=== PATIENT | male | born 1985 | race Caucasian/White ===

== ENCOUNTER 2019-07-03 15:45 | Outpatient (CLI) | payer OTHER, SELFPAY ==
[2019-07-03 16:30] LABS: Post Vasectomy Sperm Presence None Seen (None Seen)
== END 2019-07-03 15:46 | disposition home or self-care (01) ==
LOC: CHSLAB 15:48
PROVIDERS: PCP Nurse Practitioner Family; Visit Provider Family Medicine
DX: Z98.52 Vasectomy status (principal)
CPT/HCPCS: 88160

== ENCOUNTER 2019-09-19 12:44 | Outpatient (CLI) | payer OTHER, SELFPAY | END 2019-09-19 12:45 | disposition home or self-care (01) | LOC: CHSLAB 12:47 | PROVIDERS: PCP Nurse Practitioner Family; Visit Provider Family Medicine | DX: Z98.52 Vasectomy status (principal) | CPT/HCPCS: 89321 ==

== ENCOUNTER 2019-11-17 11:09 | Emergency (ER) | payer OTHER, SELFPAY ==
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
[2019-11-17 11:20] VITALS: BP 140/74; PULSE 85; RESP 18; TEMP 36.7; O2SAT 99
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
== END 2019-11-17 11:50 | disposition home or self-care (01) ==
PROVIDERS: Emergency Provider Nurse Practitioner Family; PCP Nurse Practitioner Family
DX: M94.0 Chondrocostal junction syndrome [Tietze] (principal); F41.9 Anxiety disorder, unspecified; F32.9 Major depressive disorder, single episode, unspecified
CPT/HCPCS: 71101; 99213; G0463

== ENCOUNTER → 2020-05-29 09:38 | Outpatient (CLI) | payer OTHER, SELFPAY ==
--- NOTE | ~2020-05-29 | XR_ITS ---
EXAMINATION: XR chest 2V DATE: 05/29/2020 09:52 INDICATION: Shortness of breath. Intermittent midsternal chest pain. TECHNIQUE: PA and lateral views of the chest were obtained. COMPARISON: 11/17/2019 FINDINGS: On the lateral projection there is a 1 x 1.5 cm nodular opacity projecting over the heart, lingula an d right middle lobe with no definitive correlate identified on the frontal projection. No other airsp lefty opacities, pulmonary edema, pleural effusion or pneumothorax. The cardiomediastinal silhouette is normal. Minimal thoracic spondylosis. IMPRESSION: 1. Indeterminate nodular opacity projecting over the anterior lung bases on the lateral projection. C onsider low-dose noncontrast chest CT for further evaluation. Reviewed, dictated and finalized at location A. ER CHECKER IMPRESSION: 1. Indeterminate nodular opacity projecting over the anterior lung bases on the lateral projection. Consider low-dose noncontrast chest CT for further evaluat ion.
== END ==
PROVIDERS: Visit Provider Nurse Practitioner Family
DX: R06.02 Shortness of breath (principal); R91.8 Other nonspecific abnormal finding of lung field
CPT/HCPCS: 71046

== ENCOUNTER 2020-08-30 12:26 | Emergency (ER) | payer OTHER, SELFPAY ==
--- NOTE | ~2020-08-30 | XR_ITS ---
EXAMINATION: XR chest 2V DATE: 08/30/2020 13:04 INDICATION: Chest pain. Shortness of breath. TECHNIQUE: Frontal and lateral views of the chest were obtained. COMPARISON: Chest 2 views 05/29/2020 FINDINGS: The chest demonstrates clear lungs without pneumonia, pleural effusion, or pneumothorax. Th e heart size is normal. IMPRESSION: 1. No acute cardiopulmonary disease. Reviewed, dictated and finalized at location A.
[2020-08-30 12:30] VITALS: BP 155/107; PULSE 80; RESP 20; TEMP 36.6; O2SAT 100
--- NOTE | 2020-08-30 12:36 | ECG_ITS ---
Measurements Intervals [place] Rate: 85 P: 33 [place]: 157 QRS: 73 QRSD: 84 T: 62 QT: 338 QTc: 403 Interpretive Statements SINUS RHYTHM BASELINE ARTIFACT- II, III, AVL NORMAL ECG Electronically Signed On 08-31-2020 10:28:00 CDT by Camron Haynes D.O.
--- NOTE | 2020-08-30 12:41 | ED.CHESTPAIN ---
HPI - Chest Pain General Chief Complaint: Chest Pain Stated Complaint: sob chest pain Time Seen by Provider: 08/30/20 12:29 Source: patient Mode of arrival: ambulatory Limitations: no limitations History of Present Illness HPI narrative: this is a 35-year-old male that presents with some left-sided chest tightness with a history of depression and anxiety and is currently taping off of 1 of his antidepressants while starting another there is no nausea vomiting chest discomfort about a 3/10 with no diaphoresis does date that he is mildly short of breath with no smoking history no alcohol history does not use illicit drugs no energy drink use and no family history of heart disease. complaint: chest pain Onset (ago): hour(s) Timing of current episode: episodic Prior episodes: No Onset: during rest Pain location: right chest Pain radiation: none Severity: mild Pain scale (0-10): 3 Quality: heaviness Relieving factors: nothing Exacerbating factors: nothing and other ( has history of anxiety and depression) Related Data Home Medications Medication Instructions Recorded Confirmed bupropion HCl 300 mg PO DAILY 04/05/19 08/30/20 cholecalciferol (vitamin D3) 125 125 mcg PO DAILY 06/04/20 08/30/20 mcg (5,000 unit) capsule duloxetine 60 mg capsule,delayed 60 mg PO DAILY 06/04/20 08/30/20 release multivitamin 1 tablet PO DAILY 06/04/20 08/30/20 omega-3 fatty acids 1,000 mg 1,000 mg PO DAILY 06/04/20 08/30/20 capsule lamotrigine 100 mg PO DAILY 08/30/20 08/30/20 vortioxetine [Trintellix] 5 mg PO DAILY 08/30/20 08/30/20 Allergies Allergy/AdvReac Type Severity Reaction Status Date / Time cephalexin [From Keflex] Allergy Rash Verified 11/17/19 11:26 Review of Systems Review of Systems: All systems reviewed & are unremarkable except as noted in HPI and below PMFSH Past Medical History Medical History (Updated 08/30/20 @ 13:42 by Lenny Gay MD) Anxiety Depression GERD (gastroesophageal reflux disease) Headache, migraine Irritable bowel disease Family History Family History (Updated 06/04/20 @ 14:34 by Jayesh Ford) Other Heart disease Hypertension Malignant neoplasm of prostate Social History Social History (Updated 06/04/20 @ 14:34 by Jayesh Ford) Smoking status: Never smoker Alcohol intake: current Exam Const: General: cooperative, healthy appearing, comfortable, no acute distress and well developed HENMT: Head: normal to inspection Ears: hearing grossly normal bilaterally General nose exam: Normal external nose present Face and sinus: normal facial exam Throat: posterior oropharynx normal Eyes: General: appearance normal, both eyes and all related structures Eyelids: eyelids normal Conjunctivae: conjunctivae normal Sclera: sclerae normal Chest: Chest palpation & inspection: normal inspection of the chest and normal palpation of entire chest wall Resp: Effort & Inspection: normal respiratory effort and able to speak in complete sentences Auscultation: clear to auscultation bilaterally Cardio: Palpation: normal PMI Rate: regular rate Rhythm: regular rhythm Heart sounds: S1 normal heart sound present GI: Inspection: normal to inspection Auscultation: normal bowel sounds Back/Spine/Pelvis: Cervical Spine: cervical ROM normal Thoracic/Lumbar Spine: thoracic and lumbar spine normal to inspection Neuro: General: oriented to person, oriented to place and oriented to time Psych: Appearance: grossly normal and well kempt Mental Status: mental status grossly normal Affect: Anxious affect present Course Course Emergency Course: Patient received IM Toradol and eased is pain level currently blood pressure is 155/107 and repeat blood pressure 131/91 and advised for him to follow-up with primary care physician MDM - Chest Pain ECG Data EKG #1: ECG completion date: 08/30/20 ECG completion time: 12:41 EKG Interpretation: normal rate Crit
[2020-08-30 12:59] LABS: Basophils Absolute Auto 0.05 K/mm3 (0.00-0.10); Basophils Percent Auto 0.9 % (0.0-1.0); Eosinophils Absolute Auto 0.17 K/mm3 (0.02-0.50); Hematocrit 40.9 % (40.0-54.0); Immature Granulocyte Absolute 0.03 K/mm3 (0.00-0.00); Immature Granulocyte Percent A 0.5 % (0.0-0.0); Lymphocytes Absolute Auto 1.58 K/mm3 (1.10-4.50); Lymphocytes Percent Auto 28.1 % (18.0-42.0); Mean Corpuscular HGB Conc 34.2 g/dL (32.0-36.0); Mean Corpuscular Hemoglobin 29.1 pg (27.0-31.0); Mean Platelet Volume 9.1 fl (8.7-11.0); Monocytes Absolute Auto 0.32 K/mm3 (0.10-0.90); Monocytes Percent Auto 5.7 % (2.0-11.0); Neutrophils Absolute Auto 3.5 K/mm3 (1.7-7.2); Neutrophils Percent Auto 61.8 % (50.0-70.0); Platelet Count Result 316 K/mm3 (150-420); Red Blood Count 4.81 M/mm3 (4.70-6.10); Red Cell Distribution Width 12.6 % (11.6-14.4); White Blood Count 5.6 K/mm3 (4.8-10.8)
[2020-08-30] MEDS: KETOROLAC (*BKC) 60 MG/2 ML VIAL IM (13:02)
[2020-08-30 13:17] LABS: Alanine Aminotransferase 35 U/L (16-63); Albumin Level 3.9 g/dL (3.4-5.0); Alkaline Phosphatase 90 U/L (46-116); Anion Gap 14 mmol/L (8-16); Aspartate Amino Transferase 18 U/L (15-37); Bilirubin,Total 0.4 mg/dL (0.00-1.00); Blood Urea Nitrogen 12 mg/dL (7-18); Calcium 9.1 mg/dL (8.5-10.1); Carbon Dioxide 25 mmol/L (21-32); Chloride 100 mmol/L (98-108); Estimated Glomerular Filt Rate > 60; Glucose 127 mg/dL (70-99); Lipase 156 U/L (73-393); Osmolality Calculated 289 mOsm/kg (285-295); Potassium 3.4 mmol/L (3.5-5.1); Sodium 139 mmol/L (136-145); Total Protein 7.5 g/dL (6.4-8.2); Troponin I 4.2 ng/L (0.00-60.4)
[2020-08-30 13:51] VITALS: BP 131/91; PULSE 80
== END 2020-08-30 13:50 | disposition home or self-care (01) ==
PROVIDERS: Emergency Provider Emergency Medicine
DX: R07.89 Other chest pain (principal)
CPT/HCPCS: 36415; 71046; 80053; 83690; 84484; 85025; 93005; 96372; 99283; J1885

== ENCOUNTER 2021-11-16 22:36 | Emergency (ER) | payer OTHER, SELFPAY ==
[2021-11-16] VITALS (9 sets, daily range): BP systolic 120–141; BP diastolic 80–89; PULSE 81–93; RESP 18–20; TEMP 36.4; O2SAT 95–98
--- NOTE | ~2021-11-16 | XR_ITS ---
EXAMINATION: XR chest 2V DATE: 11/16/2021 23:13 INDICATION: Chest tightness. TECHNIQUE: Frontal and lateral views of the chest were obtained. COMPARISON: Chest 2 views 08/30/2020 FINDINGS: There is no pneumonia, pleural effusion, or pneumothorax. The heart size is normal. IMPRESSION: 1. No acute cardiopulmonary disease. Reviewed, dictated and finalized at location A.
--- NOTE | 2021-11-16 22:54 | ED.CHESTPAIN ---
HPI - Chest Pain General Chief Complaint: Anxiety Stated Complaint: chest tightness, elevated BP Time Seen by Provider: 11/16/21 22:47 Source: patient Mode of arrival: ambulatory Limitations: no limitations History of Present Illness HPI narrative: patient states that he took his blood pressure and it was elevated to 189/105 then took it again it was 165/95. He then felt a pain in his right little finger possibly up into his forearm. He then began feeling like he had some chest tightness and difficulty breathing. No nausea vomiting no diaphoresis no radiation of pain. He says that he has had some problems with anxiety in the past and has been checked out for acute heart attacks in the past. He thought tonight he should just get it checked out. complaint: chest discomfort Onset (ago): hour(s) Timing of current episode: episodic Prior episodes: Yes Onset: during rest Pain location: substernal Pain radiation: right arm Severity: moderate Quality: tightness Relieving factors: nothing Exacerbating factors: stress Associated symptoms: dyspnea Treatment prior to arrival: none Risk Factors Thoracic aortic dissection risk factors: none Related Data Home Medications Medication Instructions Recorded Confirmed bupropion HCl 150 mg 24 hr tablet, 300 mg PO DAILY 04/05/19 11/16/21 extended release lamotrigine 100 mg tablet 100 mg PO DAILY 08/30/20 11/16/21 Allergies Allergy/AdvReac Type Severity Reaction Status Date / Time cephalexin [From Keflex] Allergy Rash Verified 11/16/21 22:48 Review of Systems Review of Systems: All systems reviewed & are unremarkable except as noted in HPI and below Constitutional: Constitutional: Denies excessive sweating Gastrointestinal: Gastrointestinal: Denies nausea and Denies vomiting [facility] Past Medical History Medical History (Updated 11/16/21 @ 23:55 by Frantz Serna MD) Anxiety Depression GERD (gastroesophageal reflux disease) Headache, migraine Irritable bowel disease Surgical History Surgical History (Updated 11/16/21 @ 23:00 by Frantz Serna MD) No pertinent past surgical history Family History Family History (Updated 06/04/20 @ 14:34 by Jayesh Ford) Other Heart disease Hypertension Malignant neoplasm of prostate Social History Social History Smoking status: Never smoker Alcohol intake: current Substance use type: does not use Exam Const: General: healthy appearing, no acute distress and alert Nutritional Appearance: well nourished Orientation/consciousness: patient oriented x3 Limitations: no limitations HENMT: Head: normal to inspection Ears: external ears normal Face and sinus: normal facial exam Eyes: Conjunctivae: conjunctivae normal Pupils: Equal, round and reactive pupils present EOM: EOMs intact bilaterally Neck: Neck: normal visual inspection Resp: Effort & Inspection: normal respiratory effort Auscultation: clear to auscultation bilaterally Cardio: Rate: regular rate Rhythm: regular rhythm GI: GI Palp: Yes Soft to palpation and No Tenderness to palpation present (GI) Auscultation: normal bowel sounds Back/Spine/Pelvis: Cervical Spine: cervical ROM normal Thoracic/Lumbar Spine: thoraco-lumbar ROM normal Skin: General skin exam: normal color Rashes: no rashes Neuro: General: patient oriented x3, moves all extremities, no focal motor deficits and CN's II-XI intact bilaterally Speech: normal speech Gait exam (Neuro): Normal gait present Extrem: General: normal to inspection and no clubbing, cyanosis or edema Psych: Mental Status: mental status grossly normal Affect: Anxious affect present Attitude: cooperative Course Vital Signs Vital signs: Vital Signs Temperature 36.4 C 11/16/21 22:50 Pulse Rate 93 11/16/21 22:50 Respiratory Rate 18 11/16/21 22:50 Blood Pressure 141/89 H 11/16/21 22:50 Pulse Oximetry 98 11/16/21 22:50 O
--- NOTE | 2021-11-16 22:55 | ECG_ITS ---
Measurements Intervals [place] Rate: 83 P: 31 ME: 159 QRS: 63 QRSD: 93 T: 67 QT: 352 QTc: 415 Interpretive Statements SINUS RHYTHM NORMAL ECG COMPARED TO ECG 08/30/2020 12:39:31 NO SIGNIFICANT CHANGES Electronically Signed On 11-17-2021 10:40:38 CDT by Aram Marie M.D.
[2021-11-16 23:21] LABS: Basophils Absolute Auto 0.08 K/mm3 (0.00-0.10); Eosinophils Absolute Auto 0.14 K/mm3 (0.02-0.50); Eosinophils Percent Auto 1.7 % (1.0-6.0); Hematocrit 39.9 % (40.0-54.0); Hemoglobin 13.6 g/dL (14.0-18.0); Immature Granulocyte Absolute 0.03 K/mm3 (0.00-0.00); Immature Granulocyte Percent A 0.4 % (0.0-0.0); Lymphocytes Absolute Auto 2.31 K/mm3 (1.10-4.50); Lymphocytes Percent Auto 28.3 % (18.0-42.0); Mean Corpuscular HGB Conc 34.1 g/dL (32.0-36.0); Mean Corpuscular Hemoglobin 29.1 pg (27.0-31.0); Mean Corpuscular Volume 85.3 fL (78.0-102.0); Mean Platelet Volume 9.5 fl (8.7-11.0); Monocytes Percent Auto 9.8 % (2.0-11.0); Neutrophils Absolute Auto 4.8 K/mm3 (1.7-7.2); Neutrophils Percent Auto 58.8 % (50.0-70.0); Platelet Count Result 321 K/mm3 (150-420); Red Blood Count 4.68 M/mm3 (4.70-6.10); Red Cell Distribution Width 12.9 % (11.6-14.4); White Blood Count 8.2 K/mm3 (4.8-10.8)
[2021-11-16 23:39] LABS: Alanine Aminotransferase 36 U/L (16-63); Albumin Level 4.2 g/dL (3.4-5.0); Alkaline Phosphatase 83 U/L (46-116); Anion Gap 11 mmol/L (8-16); Aspartate Amino Transferase 23 U/L (15-37); Bilirubin,Total 0.2 mg/dL (0.00-1.00); Blood Urea Nitrogen 11 mg/dL (7-18); Carbon Dioxide 25 mmol/L (21-32); Chloride 102 mmol/L (98-108); Estimated Glomerular Filt Rate > 60; Glucose 112 mg/dL (70-99); Osmolality Calculated 286 mOsm/kg (285-295); Potassium 3.6 mmol/L (3.5-5.1); Sodium 138 mmol/L (136-145); Total Protein 7.3 g/dL (6.4-8.2); Troponin I 6.1 ng/L (0.00-60.4)
[2021-11-16 23:40] LABS: CRP < 0.2 mg/dL (0.0-0.9)
== END 2021-11-16 23:59 | disposition home or self-care (01) ==
PROVIDERS: Emergency Provider Emergency Medicine
DX: F41.9 Anxiety disorder, unspecified (principal)
CPT/HCPCS: 36415; 71046; 80053; 84484; 85025; 86140; 93005; 99284